=== PATIENT | female | born 1985 | race Caucasian/White ===

== ENCOUNTER 2025-06-14 08:24 | Outpatient (AMB) | payer OTHER, SELFPAY ==
--- OUTSIDE RECORDS SUMMARY | 2025-06-14 08:37 | XMS_ITS | Clinical Summary ---
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 07/14/2023 Active norethindrone (ADRIA MANTILLA H EATHER,SLOAN ) 0.35 mg tablet Take 1 tablet (0.35 mg total) by mouth 1 (one) time each day. 04/08/2023 Active busPIRone (BUSPAR) 30 mg tablet Take 1 tablet (30 mg total) by mouth 1 (one) time each day. Active hydrOXYzine pamoate (VISTARIL) 25 mg capsule Take 1 capsule (25 mg total) by mouth 2 (two) times a day if needed for anxiety (for up to 90 days). 06/24/2019 Active methylphenidate 27 mg ER tablet Take 1 tablet (27 mg total) by mouth 1 (one) time each day. Max Daily Amount: 27 mg 06/24/2019 Active MULTIVITAMIN ORAL Take by mouth. Active amitriptyline (ELAVIL) 100 mg tablet 1 TABLET AT BEDTIME Active Active Problems Problem Noted Date Diagnosed Date BRCA negative 12/08/2024 Overview (12/08/2024): Family history breast and ovarian cancer ASCUS with positive high risk HPV cervical 08/16 Overview (08/01/2024): 08/08/2020 Papsmear ASCUS HR HPV 08/29/2019 Colpo wnl Pure hypercholesterolemia 09/22/2018 Anxiety 03/02/2017 ADHD (attention deficit hyperactivity disorder) 05/13/2010 Headache 03/16/2006 Allergic rhinitis 12/16/2005 Encounters Date Type Department Care Team Description 04/29/2025 8:32 AM EDT - 04/29/2025 11:59 PM EDT Hospital Encounter Radiology Department - [address] [phone] Encounter for screening mammogram for malignant neoplasm of breast Discharge Disposition: Home or Self Care from Last 3 Months Immunizations Immunization Administration Dates Next Due H1N1 Inj Preservative Free 07/06/2009 HPV, Quadrivalent 05/20/2007,01/18/2007,11/18/19 07 Influenza trivalent, with pr eservative (Fluzone; Afluria) 6mo and older 06/17/2011,05/13/2010,07/06/2009 Meningococcal Polysaccharide 06/02/2005 PPD Test 06/11/2011 Td Tetanus diptheria (Tdvax) 7yo and older 06/02 Tdap Tetanus diptheria acell ular pertussis (Boostrix; Adacel) 7yo and older 01/20/2014 Surgical History Surgery Date Site/Laterality Comments WISDOM TOOTH EXTRACTION age 17 PROCEDURE: HISTORICAL WISDOM TEETH EXTRACTION Medical History Medical History Date Comments Allergic rhinitis, cause unspecified 12/16/2005 DX:Allergic rhinitis, cause unspecified Migraine without aura, witho ut mention of intractable migraine without mention of status migrainosus 03/16/2006 DX:Migraine without aura , without mention of intractable migraine without mention of status migrainosus Headache(784.0) 03/16/2006 DX:Headache(784. 0) Unspecified asthma(493.90) DX:Un specified asthma(493.90) Other specified personal his tory presenting hazards to health(V15.89) DX:Other specifie d personal history presenting hazards to health(V15.89); COMMENT: culpo and biopsy BRCA negative DX:BRCA negative BRCA1 gene mutation negative Family History Medical History Relation Name Comments Breast cancer Aunt great aunt Ovarian cancer Aunt great aunt maternal grea t Aunt-; breast ca at 32 Glaucoma Father Other Dermatological Disorders Maternal Grandfather Nose...specifics unknown skin cancer Other: alzheimer's disease Maternal Grandfather in his 70s Brain Aneurysm Maternal Grandmother cause of Hypertension Maternal Grandmother Other cancer Maternal Grandmother cervica l Ovarian cancer Maternal Grandmother Heart attack Mother htn, asthma, co pd;alive at 54 2013 Lung cancer Mother Other: BRCA neg Other Other: Other Paternal Grandfather ? cause of Lung cancer Paternal Grandmother rui ghe rigs disease ALS at 81 Other: Other Uncle Parkinson's disease-paternal gr uncle Colon cancer Neg Hx Pancreatic cancer Neg Hx Prostate cancer Neg Hx Uterine cancer Neg Hx Relation Name Status Comments Aunt great aunt Brother Alive Father Alive Maternal Grandfather Maternal Grandmother Mother Other Paternal Grandfather Paternal Grandmother Uncle Social History Tobacco Use Types Packs/Day Years Used Date Smoking Tobacco: Former Cigarettes 0 Q uit: 06/21/2011 Smokeless Tobacco: Former Tobacco Cessation:Counseling Given: Not Answered Alcohol Use Standard Drinks/Week Comments Yes 13.3 (1 standard drink = 0.6 oz pure alcohol) Comments No Sex and Gender Information Value Date Recorded Sex Assigned at Female 12/02/2024 10:09 AM EDT Legal Sex Female 1:58 AM EST Gender Identity Female 12/02/2024 10:09 AM EDT Sexual Orientation Not on file Obstetrics History Para Term AB IAB SAB Ectopic Multiple Livin g Live Births 0 0 0 0 0 0 0 0 Last Filed Vital Signs Vital Sign Reading Time Taken Comments Blood Pressure 132/98 12/08/2024 8:50 AM EDT Pulse 95 12/08/2024 8:50 AM EDT Temperature - - Respiratory Rate 18 12/08/2024 8:50 AM EDT Oxygen Saturation - - Inhaled Oxygen Concentration - - Weight 69.5 kg (153 lb 3.2 oz) 12/08/2024 8:50 A M EDT Height 165.1 cm (5' 5 ) 12/08/2024 8:50 AM EDT Body Mass Index 25.49 12/08/2024 8:50 AM EDT Plan of Treatment Health Maintenance Due Date Last Done Comments Hepatitis B Vaccines (1 of 3 - 19+ 3-dose series) 2003 Social Influencers of Health Screening 07/06/2022 DTaP,Tdap,and Td Vaccines (3 - Td or Tdap) 01/21/2024 01/20/2014, 06/02/2005 Cervical Cancer Screening: Pap Smear 04/08/2024 04/08/2023, 04/08/2023, 10/22/2021, Additional history exists Cholesterol Screening (Lipid Panel) 06/14/2024 06/14/2019 COVID-19 Vaccine ( season) 2025 Influenza Vaccine (#1) 2025 1, 05/13/2010, 07/06/2009, Additional history exists Breast Cancer Screening 04/29/2027 04/29/2025 RSV Immunization Adult Patients (1 - 1-dose 75+ series) 2059 Meningococcal ACWY Vaccine Aged Out 06/02/2005 N o longer eligible based on patient's age to complete this topic HPV Vaccines Completed 05/20/2007, 01/01, 11/17/2006 HIV Screening Completed 04/08/2023 Hepatitis C Screening Completed 04/08/2023 Depression Screening Completed 12/02/2024 HIB Vaccines Aged Out No longer eligi ble based on patient's age to complete this topic Hepatitis A Vaccines Aged Out No long er eligible based on patient's age to complete this topic IPV Vaccines Aged Out No longer eligi ble based on patient's age to complete this topic MMR Vaccines Aged Out No longer eligi ble based on patient's age to complete this topic Meningococcal B Vaccine Aged Out No l onger eligible based on patient's age to complete this topic Pneumococcal Vaccine: Pediatrics (0 to 5 Years) and At-Risk Patients (6 to 49 Years) Aged Out No longer eligible based on patient's age to complete this topic RSV Immunization Patients Under 20 months Aged Out No longer eligible based on patient's age to complete this topic Varicella Vaccines Aged Out No longer eligible based on patient's age to complete this topic Procedures Procedure Name Priority Date/Time Associated Diagnosis Comments MG MAMMO DIGITAL SCREENING W BA BILAT Routine 04/29/2025 8:43 AM EDT Encounter for screening mammogram for malignant neoplasm of breast HM HEPATITIS C SCREENING Routine 04/08/2023 HM HIV SCREENING Routine 04/08/2023 PAP SMEAR Routine 04/08/2023 LIPID PANEL Routine 06/14/2019 from Last 3 Months or Most Recently Relevant to Health Maintenance Results * MG Mammo Digital Screening w Ba bilat (04/29/2025 8:43 AM EDT) Anatomical Region Laterality Modality Breast Bilateral Mammography 05/10/2025 6:10 PM EDT Impressions 05/10/2025 6:12 PM EDT 1. No mammographic evidence of malignancy 2. Heterogeneous breast parenchyma BI-RADS CATEGORY: 2 - BENIGN RECOMMENDATION: Screening bilateral mammogram is recommended in 1 year. Mammo Location: [facility] Department, [address] [place] [address], [id number], . -------- FINAL REPORT -------- Dictated By: Chris Mandujano Dictated Date: 05/10/2025 18:10 ET Assigned Physician: Chris Mandujano Reviewed and Electronically Signed By: Chris Mandujano Signed Date: 05/10/2025 18:12 ET Workstation ID: [id number] Transcribed By: Self Edit Transcribed Date: 05/10/2025 18:10 ET Narrative 05/10/2025 6:12 PM EDT A BILATERAL DIGITAL 3D SCREENING MAMMOGRAPHY HISTORY: Routine screening. Family history of breast cancer in aunt COMPARISON: Baseline Technique: Bilateral full field digital mammography (3D) was performed using standard CC and MLO projections , bilateral exaggerated cc views CAD was used to evaluate this mammogram. FINDINGS: Right: No suspicious masses, groups of microcalcification or areas of architectural distortion identified. Typically benign parenchymal asymmetries. Left: No suspicious masses, groups of microcalcification or areas of architectural distortion identified. Typically benign parenchymal asymmetries. BREAST DENSITY: C - The breasts are heterogeneously dense which may obscure small masses. Procedure Note Chris Mandujano MD - 05/10/2025 A BILATERAL DIGITAL 3D SCREENING MAMMOGRAPHY HISTORY: Routine screening. Family history of breast cancer in aunt COMPARISON: Baseline Technique: Bilateral full field digital mammography (3D) was performedusing standard CC and MLO projections , bilateral exaggerated cc views CAD was used to evaluate this mammogram. FINDINGS: Right: No suspicious masses, groups of microcalcification or areas ofarchitectural distortion identified. Typically benign parenchymalasymmetries. Left: No suspicious masses, groups of microcalcification or areas ofarchitectural distortion identified. Typically benign parenchymalasymmetries. BREAST DENSITY: C - The breasts are heterogeneously dense which mayobscure small masses. IMPRESSION: 1. No mammographic evidence of malignancy 2. Heterogeneous breast parenchyma BI-RADS CATEGORY: 2 - BENIGN RECOMMENDATION: Screening bilateral mammogram is recommended in 1 year. Mammo Location: [facility], [address] [place] [address], [id number], . -------- FINAL REPORT -------- Dictated By: Chris Mandujano Dictated Date: 05/10/2025 18:10 ET Assigned Physician: Chris Mandujano Reviewed and Electronically Signed By: Chris Mandujano Signed Date: 05/10/2025 18:12 ET Workstation ID: [id number] Transcribed By: Self Edit Transcribed Date: 05/10/2025 18:10 ET us Ann Harrison CNM IMG BI PROCEDURES Final Resu lt * HIV Screening (04/08/2023) [facility] HIV Screening abstracted us Historical Provider HEALTH MAINTENANCE Final Result * Hepatitis C Screening (04/08/2023) Hepatitis C Screening abstracted Historical Provider HEALTH MAINTENANCE Final Result * Pap smear (04/08/2023) 04/08/2023 Narrative HISTORICAL TESTING LAB RESULTING AGENCY - 04/21/2023 8:01 AM EDT [id number] THINPREP PAP, IMAGED: NEGATIVE FOR SQUAMOUS INTRAEPITHELIAL LESION AND MALIGNANCY . SHIFT IN MIR[place]DE, SUGGESTIVE OF BACTERIAL VAGINOSIS. PATY ECHEVERRIA(ASCP) (CASE ELECTRONICALLY SIGNED 04 20 2023) RESULT OF APTIMA HIGH RISK HPV ASSAY: HIGH RISK HPV: NEGATIVE (SEROTYPES 16,18,31,33,35,39,45,51,52,56,58,59,66,68) COMPLETED ON 2023-04-10 ADEQUACY: SATISFACTORY ENDOCERVICAL/TRANSFORMATION ZONE COMPONENT PRESENT. SOURCE: THINPREP PAP HPV ANY DX: REFLEX 16 AND 18, CERVICAL, IMAGED CLINICAL INFORMATION: HPV ANY DIAGNOSIS. 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
--- NOTE | 2025-06-14 08:38 | A.OFFVIS_ITS ---
Intake Visit Reasons: 1 yr f/u Allergies Penicillins Adverse Reaction (Unknown, Verified 06/14/25 08:41) Unknown Medication List - Last Reconciled 06/14/25 by Leyla Horner CNP buspirone 30 mg PO BID choriogonadotropin abi,humrec (Ovidrel) mcg subcut chorionic gonadotropin, human (Pregnyl) units IM hydroxyzine pamoate mg PO letrozole 5 mg PO DAILY norethindrone acetate 5 mg PO DAILY HPI Comments Details: 40-year-old woman with ADD, insomnia, and migraine headaches treated with amitryptiline. She was doing okay. She stopped amitriptyline and Maxalt in 01/2025 as she was trying to conceive and was working with fertility specialist. She was having more headaches without the medication. [facility] Medical History (Updated 06/14/25 @ 08:40 by Leyla Horner CNP) ADD (attention deficit disorder) Migraine Insomnia Review of Systems Const Denies chills, Denies daytime sleepiness, Denies difficulty sleeping, Denies fatigue, Denies fever(s), Denies frequent falls, Reports headache(s), Denies increased appetite, Denies poor appetite, Denies snoring, Denies weakness, Denies weight gain and Denies weight loss Eyes Denies loss of vision ENT Denies vertigo, Denies dizziness and Reports headache(s) Card Denies chest pain at rest, Denies chest pain with activity, Denies syncope, Denies leg edema and Denies palpitations Resp Denies snoring GI Denies constipation, Denies heartburn, Denies diarrhea and Denies nausea Denies urinary frequency, Denies urinary incontinence and Denies urinary urgency Musc Denies abnormal gait, Denies numbness and Denies tingling Skin/Breast Denies dry skin and Denies rash Neuro Denies abnormal gait, Denies vertigo, Denies dizziness, Denies syncope, Denies frequent falls, Reports headache(s), Denies lack of coordination, Denies loss of vision, Denies memory loss, Denies numbness, Denies restless legs, Denies seizure-like activity, Denies tingling, Denies paresthesias, Denies tremor(s) and Denies weakness Psych Reports anxiety, Denies depression, Denies auditory hallucinations, Denies memory loss, Denies visual hallucinations and Denies suicidal ideation Endo Denies fatigue and Denies palpitations Physical Exam Const Other: General Appearance:? normal, in no acute distress. Skin:? no rashes, no significant birthmarks. Heart:? S1, S2 normal, no murmurs. Lungs:? clear anteriorly and posteriorly. Extremities:? no edema. Psych:? alert, oriented, cognitive function intact, cooperative with exam. Neuro Other: Mental Status:?Normal attention, orientation, memory and affect.? Cranial Nerves:?Pupils are equal, round and reactive to light. External occular muscles are intact. Visual herbert are full. Face is symmetrical. Facial sensations are normal. Tongue is midline. Palate elevates symmetrically. Shoulder shrugging is normal. Hearing to bedside conversation is normal. Sensory Exam:?....? Coordination:?No ataxia,?no titubation.? Gait Exam: Within normal limits. Extrapyramidal System:?No tremor, rigidity with normal facial expressions.? Pronator Drift:?Not present.? Involuntary Movements:?No tremors seen.? Speech:?Normal.? Assessment & Plan Assessment & Plan (1) Migraine: Code(s): G43.909 - Migraine, unspecified, not intractable, without status migrainosus Category: Medical Qualifiers: Migraine type: unspecified Status migrainosus presence: without status migrainosus Intractability: not intractable Qualified Code(s): G43.909 - Migraine, unspecified, not intractable, without status migrainosus Plan: She stopped amitriptyline 100mg and Maxalt 10mg as needed in 01/2025 as she is actively trying to conceive and working with fertility specialist. Headaches were happening more without medication. She was educated on medications for migraines during , although generally best to avoid medication if possible, which she was agreeable. Follow up in 1 year or sooner as needed. Coding Level of Care Code Est Pt Level 3 (89049) Diagnoses Migraine without status migrainosus, not intractable, unspecified migraine type G43.909 Migraine type: unspecified Status migrainosus presence: without status migrainosus Intractability: not intractable
== END 2025-06-14 08:46 | disposition home or self-care (01) ==
PROVIDERS: PCP Internal Medicine; Referring Provider Internal Medicine; Visit Provider Registered Nurse
DX: G43.909 Migraine, unspecified, not intractable, without status migrainosus (principal)
CPT/HCPCS: 99213